=== PATIENT | male | born 1935 | race Caucasian/White ===

== ENCOUNTER → 2016-03-05 | Outpatient (CLI) | payer MEDICARE | LOC: RAD 12:03 | PROVIDERS: ATTEND Family Medicine | DX: R35.1 Nocturia (principal); G31.84 Mild cognitive impairment of uncertain or unknown etiology | CPT/HCPCS: 51798 ==

== ENCOUNTER → 2016-03-09 | Outpatient (CLI) | payer MEDICARE | LOC: RAD 13:29 | PROVIDERS: ATTEND Family Medicine | DX: R35.1 Nocturia (principal); G31.84 Mild cognitive impairment of uncertain or unknown etiology | CPT/HCPCS: 70553; A9579 ==